=== PATIENT | female | born 1950 | race Caucasian/White ===

== ENCOUNTER 2016-09-09 09:48 | Emergency (ER) | payer OTHER ==
[2016-09-09 10:17] VITALS: BP 140/89
--- NOTE | 2016-09-09 10:54 | UC ---
Throat Pain/Nasal Robert HPI - HPI Summary HPI Summary: 65 yo female with sore throat and sinus pain/nasal congestion x 5 days fever/chills and low energy no cp or sob severe nausea/no vomitng hx sinusitis - History of Current Complaint Chief Complaint: UCRespiratory Stated Complaint: SORE THROAT Time Seen by Provider: 09/09/16 10:42 Hx Obtained From: Patient Onset/Duration: Gradual Onset, Lasting Days Severity: Moderate Pain Intensity: 4 Pain Scale Used: 0-10 Numeric Cough: Nonproductive Associated Signs & Symptoms: Positive: Sinus Discomfort, Nasal Discharge, Fever - Epiglottits Risk Factors Epiglottis Risk Factors: Negative - Allergies/Home Medications Allergies/Adverse Reactions: Allergies Allergy/AdvReac Type Severity Reaction Status Date / Time Aspirin Allergy See Comment Verified 11/21/14 15:16 Hydrocodone Allergy Vomiting Verified 11/21/14 15:16 Sulfa Antibiotics Allergy Unknown Verified 11/21/14 15:16 Reaction Details Home Medications: Home Medications Acetaminophen [Eq Acetaminophen] 650 mg PO 09/09/16 [History] Omeprazole CAP* [Prilosec CAP* 20 MG] 20 mg PO DAILY 09/09/16 [History Confirmed 09/09/16] PMH/Surg Hx/FS Hx/Imm Hx Previously Healthy: Yes Endocrine History Of: Denies: Diabetes, Thyroid Disease, Hypothyroidism Cardiovascular History Of: Reports: Hypertension Denies: Cardiac Disorders Respiratory History Of: Denies: COPD, Asthma GI/ History Of: Denies: Ulcer Cancer History Of: Denies: Breast Cancer - Surgical History Surgical History: Yes Surgery Procedure, Year, and Place: TUBALIGATION 1985, carpal tunnel - Family History Known Family History: Positive: Hypertension, Other - dyslipdiemia - Social History Alcohol Use: None Substance Use Type: None Smoking Status (MU): Never Smoked Tobacco Review of Systems Constitutional: Fever, Chills Skin: Negative Eyes: Negative ENT: Sore Throat, Nasal Discharge Respiratory: Cough Cardiovascular: Negative Gastrointestinal: Negative Genitourinary: Negative Motor: Negative Neurovascular: Negative Musculoskeletal: Negative Neurological: Negative Psychological: Negative All Other Systems Reviewed And Are Negative: Yes Physical Exam Triage Information Reviewed: Yes Appearance: Well-Appearing, No Pain Distress, Well-Nourished Vital Signs: Initial Vital Signs Temp 100.1 F 09/09/16 10:14 Pulse 96 09/09/16 10:14 Resp 18 09/09/16 10:14 BP 140/89 09/09/16 10:14 Pulse Ox 97 09/09/16 10:14 Vital Signs Reviewed: Yes Eyes: Positive: Conjunctiva Clear ENT: Positive: Pharyngeal erythema, Nasal congestion, Nasal drainage, TMs normal , Other: - bilateral max sinus tenderness. Negative: Tonsillar exudate, Trismus Dental: Negative: Abscess @ Neck exam: Normal Neck: Positive: Supple, Nontender Respiratory: Positive: Lungs clear, Normal breath sounds, No respiratory distress, No accessory muscle use Cardiovascular: Positive: RRR, No Murmur. Negative: Tachycardia, Bradycardia Musculoskeletal: Positive: Strength Intact, ROM Intact Neurological Exam: Normal Neurological: Positive: Alert, Muscle Tone Normal Psychological: Positive: Normal Response To Family Skin Exam: Normal Skin: Positive: rashes Throat Pain/Nasal Course/Dx - Differential Dx/Diagnosis Provider Diagnoses: acute sinusitis Discharge - Discharge Plan Condition: Stable Disposition: HOME Prescriptions: Amoxicillin (*) 875 mg PO BID #20 tab Fluticasone NASAL SPRAY 50MCG* [Flonase NASAL SPRAY 50MCG*] 2 spray BOTH NARES DAILY #1 btl Ondansetron TAB* [Zofran Tab*] 4 mg PO Q6H PRN #10 tab PRN Reason: Nausea Patient Education Materials: Sinusitis (ED) Referrals: Grupo Crenshaw MD [Primary Care Provider] - 1 Week (if not better)
== END 2016-09-09 11:00 | disposition home or self-care (01) ==
LOC: UCEAST 09:48
DX: J01.90 Acute sinusitis, unspecified (principal); Z88.6 Allergy status to analgesic agent; Z88.2 Allergy status to sulfonamides
CPT/HCPCS: 99212; G0463

== ENCOUNTER 2018-03-06 10:50 | Emergency (ER) | payer MEDICARE ==
[2018-03-06 12:01] VITALS: BP 129/76
--- NOTE | 2018-03-08 11:44 | ED ---
Sumeet Gonzales Tiffany, scribed for Salbador Villalobos MD on 03/06/18 at 1131 . Back Pain - HPI Summary HPI Summary: 67 year old F presenting to [facility] complains of back pain since 8 months ago, worse since three weeks ago. States that pain radiates down her left leg. Rates the pain 10/10 in severity. Symptoms aggravated by nothing. Symptoms alleviated by nothing. Patient reports insomnia.. Has been seen by Dr. Franco at pain management clinic. Has taken Tramadol, Lyrica, and Percocet without relief. - History of Current Complaint Chief Complaint: EDBackInjuryPain Stated Complaint: LT SIDE PAIN Time Seen by Provider: 03/06/18 10:53 Hx Obtained From: Patient Onset/Duration: Lasting Weeks - 8 months, Still Present, Worse Since - 3 weeks ago Back Pain Location: Radiates To - down left leg Severity Currently: Severe Pain Intensity: 10 Pain Scale Used: 0-10 Numeric Aggravating Symptom(s): Nothing Alleviating Symptom(s): Nothing Associated Signs And Symptoms: Positive: Other - insomnia - Allergies/Home Medications Allergies/Adverse Reactions: Allergies Allergy/AdvReac Type Severity Reaction Status Date / Time aspirin Allergy Difficulty Verified 03/06/18 10:56 Breathing/Wheezing Sulfa (Sulfonamide Allergy Hives Verified 03/06/18 10:56 Antibiotics) hydrocodone AdvReac Vomiting Verified 03/06/18 10:56 tramadol AdvReac Vomiting Verified 03/06/18 10:56 PMH/Surg Hx/FS Hx/Imm Hx Previously Healthy: No Endocrine/Hematology History: Reports: Other Endocrine/Hematological Disorders - hyperlipidemia Denies: Hx Diabetes, Hx Thyroid Disease Cardiovascular History: Reports: Hx Hypertension Denies: Hx Pacemaker/ICD Respiratory History: Denies: Hx Asthma, Hx Chronic Obstructive Pulmonary Disease (COPD) GI History: Reports: Hx Gastroesophageal Reflux Disease Denies: Hx Jaundice, Hx Ulcer Musculoskeletal History: Reports: Hx Arthritis, Other Musculoskeletal History - low back pain, back pain, neck pain Sensory History: Denies: Hx Hearing Aid Psychiatric History: Reports: Hx Anxiety Denies: Hx Panic Disorder - Cancer History Hx Chemotherapy: No Hx Radiation Therapy: No - Surgical History Surgery Procedure, Year, and Place: TUBAL LIGATION 1985, carpal tunnel [facility], CATARACT REPAIR WITH LENSE REPLACEMENT Infectious Disease History: No Infectious Disease History: Denies: Hx Hepatitis, Hx Human Immunodeficiency Virus (HIV), Traveled Outside the [place] in Last 30 Days - Family History Known Family History: Positive: Hypertension, Other - dyslipdiemia - Social History Alcohol Use: None Hx Substance Use: No Substance Use Type: Reports: None Hx Tobacco Use: Yes Smoking Status (MU): Former Smoker Review of Systems Positive: Other - back pain Positive: Other - insomnia All Other Systems Reviewed And Are Negative: Yes Physical Exam - Summary Physical Exam Summary: Appearance: The patient is well-nourished in no acute distress and in no acute pain. Skin: The skin is warm and dry and skin color reflects adequate perfusion. HEENT: The head is normocephalic and atraumatic. The pupils are equal and reactive. The conjunctivae are clear and without drainage. Nares are patent and without drainage. Mouth reveals moist mucous membranes and the throat is without erythema and exudate. The external ears are intact. The ear canals are patent and without drainage. The tympanic membranes are intact. Neck: The neck is supple with full range of motion and non-tender. There are no carotid bruits. There is no neck vein distension. Respiratory: Chest is non-tender. Lungs are clear to auscultation and breath sounds are symmetrical and equal. Cardiovascular: Heart is regular rate and rhythm. There is no murmur or rub auscultated. There is no peripheral edema and pulses are symmetrical and equal. Abdomen: The abdomen is soft and non-tender. There are normal bowel sounds heard in all four quadrants and there is no organomegaly palpated. Musculoskeletal: The patient has positive straight leg test raise. She is tender over sciatic nerve of left leg. Neurological: Patient is alert and oriented to person, place and time. The patient has symmetrical motor strength in all four extremities. Cranial nerves are grossly intact. Deep tendon reflexes are symmetrical and equal in all four extremities. Psychiatric: The patient has an appropriate affect and does not exhibit any anxiety or depression. Triage Information Reviewed: Yes Vital Signs On Initial Exam: Initial Vitals Temp Pulse Resp BP Pulse Ox 98.3 F 87 16 141/89 98 03/06/18 10:52 03/06/18 10:52 03/06/18 10:52 03/06/18 10:52 03/06/18 10:52 Vital Signs Reviewed: Yes Diagnostics - Vital Signs Vital Signs Temp Pulse Resp BP Pulse Ox 03/06/18 10:52 98.3 F 87 16 141/89 98 - Laboratory Lab Statement: Any lab studies that have been ordered have been reviewed, and results considered in the medical decision making process. Back Pain Course/Dx - Course Course Of Treatment: Ms. Lane has just had her first appointment with the pain clinic for a chronic sciatica which is been worsened in the last few weeks. She was started on Lyrica and tramadol but could not tolerate the tramadol secondary to nausea. She was then switched to Percocet but has been unable to tolerate that also. I recommended we give her some antinausea medicine and see if she can tolerate the Percocet down and possibly it will help her pain. She states that even when she takes it and keeps it down it doesn't help her pain and requests steroids. - Diagnoses Provider Diagnoses: Back pain with sciatica Discharge - Sign-Out/Discharge Documenting (check all that apply): Discharge/Admit/Transfer - discharge - Discharge Plan Condition: Stable Disposition: HOME Patient Education Materials: Sciatica (ED), Back Pain (ED) Referrals: Grupo Crenshaw MD [Primary Care Provider] - Yudith Franco MD [Medical Doctor] - 2 Days Additional Instructions: Follow up with Dr. Franco in 2-3 days to continue pain management. Return to the Emergency Department for new or worsening symptoms. - Billing Disposition and Condition Condition: STABLE Disposition: Home The documentation as recorded by the Sumeet wu Tiffany accurately reflects the service I personally performed and the decisions made by me, Salbador Villalobos MD.
== END 2018-03-06 12:00 | disposition home or self-care (01) ==
LOC: ED 10:50
DX: M54.30 Sciatica, unspecified side (principal); Z87.891 Personal history of nicotine dependence; Z79.82 Long term (current) use of aspirin; Z88.0 Allergy status to penicillin; Z88.6 Allergy status to analgesic agent; Z88.2 Allergy status to sulfonamides
CPT/HCPCS: 99282